=== PATIENT | male | born 1955 | race Caucasian/White ===

== ENCOUNTER → 2022-04-29 17:03 | Outpatient (CLI) | payer MEDICARE, SELFPAY ==
--- NOTE | 2022-04-29 17:08 | DI.RAD.S_ITS ---
PROCEDURE: XR FOREARM LT 2V INDICATIONS: L mid-ulnar pain, hx of injury, ecchymosis TECHNIQUE: 2 views of the forearm were acquired. COMPARISON: None. FINDINGS: Bones: No fractures or dislocations. No suspicious bony lesions. Mild degenerative changes can be seen. Soft tissues: No suspicious soft tissue calcifications or masses. IMPRESSION: Plain film study within normal limits. Dictated by: Aaron Cain M.D. on 04/29/2022 at 16:22 Approved by: Aaron Cain M.D. on 04/29/2022 at 16:23
== END ==
PROVIDERS: Referring Provider Physician Assistant; Visit Provider Physician Assistant
DX: S59.912A Unspecified injury of left forearm, initial encounter (principal); X58.XXXA Exposure to other specified factors, initial encounter
CPT/HCPCS: 73090